=== PATIENT | male | born 1950 | race Caucasian/White ===

== ENCOUNTER → 2021-11-20 11:23 | Outpatient (CLI) | payer MEDICARE, SELFPAY ==
[2021-11-20 12:19] LABS: INR 1.2 (0.9-1.3); Prothrombin Time 13.1 SECONDS (10.1-12.7)
== END ==
PROVIDERS: PCP Family Medicine; Referring Provider Family Medicine; Visit Provider Family Medicine
DX: Z79.01 Long term (current) use of anticoagulants (principal); K08.9 Disorder of teeth and supporting structures, unspecified
CPT/HCPCS: 36415; 85610

== ENCOUNTER → 2022-07-16 15:13 | Outpatient (CLI) | payer MEDICARE, SELFPAY ==
[2022-07-16 18:14] LABS: Uric Acid 7.1 mg/dL (3.5-8.5)
== END ==
PROVIDERS: PCP Family Medicine; Referring Provider Internal Medicine; Visit Provider Internal Medicine
DX: M10.9 Gout, unspecified (principal)
CPT/HCPCS: 36415; 84550